=== PATIENT | male | born 1980 | race Caucasian/White ===

== ENCOUNTER 2022-07-17 13:26 | Inpatient (IN) | payer OTHER ==
[~2022-07-17] VITALS: Ht 182.9 cm; Wt 70.3 kg
[2022-07-17 14:19] LABS: BASOPHILS ABSOLUTE AUTO 0.06 K/mm3 (0.00-0.23); BASOPHILS PERCENT AUTO 0 % (0-2); EOSINOPHILS ABSOLUTE AUTO 0.12 K/mm3 (0.00-0.68); EOSINOPHILS PERCENT AUTO 1 % (0-6); Hematocrit 45.8 % (37.0-53.0); Hemoglobin 15.8 g/dL (13.5-17.5); IMMATURE GRAN ABSOLUTE AUTO 0.04 K/mm3 (0.00-0.10); IMMATURE GRAN PERCENT AUTO 0 % (0-1); LYMPHOCYTES PERCENT AUTO 12 % (21-46); MONOCYTES ABSOLUTE AUTO 0.67 K/mm3 (0.16-1.47); MONOCYTES PERCENT AUTO 4 % (4-13); Mean Corpuscular HGB Conc 34.5 g/dL (31.5-36.5); Mean Corpuscular Volume 87 fL (80-100); Mean Platelet Volume 8.9 fL (9.1-12.4); NEUTROPHILS ABSOLUTE AUTO 15.37 K/mm3 (1.96-9.15); NEUTROPHILS PERCENT AUTO 83 % (41-73); Platelet Count 409 K/mm3 (150-400); RDW Coefficient Variation 13.5 % (11.7-14.2); RDW Standard Deviation 42.8 fL (35.1-46.3); Red Blood Cell Count 5.26 M/mm3 (4.30-5.90); White Blood Cell Count 18.46 K/mm3 (4.00-11.30)
[2022-07-17 15:09] LABS: Albumin, Blood 3.7 g/dL (3.4-5.0); Albumin/Globulin Ratio 1.1 (0.8-1.8); Bilirubin, Total 0.4 mg/dL (0.1-1.0); Bun/Creatinine Ratio 18.2 (12.0-20.0); Calcium, Blood 9.2 mg/dL (8.5-10.1); Creatinine, Blood 0.66 mg/dL (0.60-1.20); Globulin, Blood 3.4 g/dL (2.2-4.0); Potassium, Blood 3.8 mmol/L (3.5-5.5); Total Protein, Blood 7.1 g/dL (6.4-8.2)
[2022-07-17 20:53] LABS: Source, Urine Clean Catch
[2022-07-17 21:09] LABS: Appearance, Urine Clear (Clear); Bilirubin, Urine Neg (Neg); Blood, Urine 1+ (Neg); Color, Urine Yellow (P-Yellow); Glucose Qualitative, Urine Neg (Neg); Ketones, Urine Neg (Neg); Leukocyte Esterase, Urine Neg (Neg); Nitrite, Urine Neg (Neg); Protein, Urine 1+ (Neg); Specific Gravity, Urine 1.015 (1.003-1.022); Urobilinogen, Urine NORM (Normal)
[2022-07-17 21:15] LABS: Hyaline Casts 0-2 /lpf (0-2)
[2022-07-17 21:16] LABS: Bacteria Few /hpf; Mucus Light (0-Heavy); Red Blood Cells, Urine 0-2 /hpf (0-2); Squamous Epithelial Cells Not Seen /hpf (Few); White Blood Cells, Urine 0-2 /hpf (0-5)
--- NOTE | 2022-07-17 21:32 | NUR ---
PT NEW ADMIT TO THE FLOOR FROM THE ER. ARRIVED IN 02/19 PAIN. PT WAS ABLE TO SELF TRANSFER TO BED AND USE THE BATHROOM WITH ASSISTANCE FROM . VOIDED W/O DIFFICULTY. PT REPORTS INCREASE BELCHING WITH ANY PO INTAKE. REPORTS NO RELIEF WITH THIS. PLAN TO BE NPO AT 0000.
--- NOTE | 2022-07-18 04:02 | NUR ---
VSS, BRADYCARDIA @56 NOTED. PT REMAINS ASYPTOMATIC. PT SLEPT ON AND OFF T/O THE NIGHT. VOIDED W/O DIFFICULTY, DARK YELLOW URINE. NO PASSING OF FLATTUS OR STOOL. NOTED THAT PT HAS HAD INCREASED BELCHING. HAS BEEN NPO SINCE 0000. SURGICAL [place]OWN COMPLETE. PAIN HAS BEEN DIFFICULT TO MANAGE T/O THE NIGHT, RECIEVED ORDER FOR Q4 NORCO INSTEAD OF Q6. PLAN FOR PT TO RECIEVE ABX THERAPY AND HAVE A SURGICAL CONSULT THIS AM. THE PATIENT IS CURRENTLY RESTING IN BED, IN NO DISTRESS, CALL LIGHT IN REACH.
[2022-07-18 06:22] LABS: BASOPHILS ABSOLUTE AUTO 0.05 K/mm3 (0.00-0.23); BASOPHILS PERCENT AUTO 0 % (0-2); EOSINOPHILS ABSOLUTE AUTO 0.14 K/mm3 (0.00-0.68); EOSINOPHILS PERCENT AUTO 1 % (0-6); Hematocrit 38.8 % (37.0-53.0); Hemoglobin 13.4 g/dL (13.5-17.5); IMMATURE GRAN ABSOLUTE AUTO 0.04 K/mm3 (0.00-0.10); IMMATURE GRAN PERCENT AUTO 0 % (0-1); LYMPHOCYTES ABSOLUTE AUTO 2.47 K/mm3 (0.84-5.20); LYMPHOCYTES PERCENT AUTO 17 % (21-46); MONOCYTES ABSOLUTE AUTO 1.16 K/mm3 (0.16-1.47); MONOCYTES PERCENT AUTO 8 % (4-13); Mean Corpuscular HGB 30.2 pg (26.0-34.0); Mean Corpuscular HGB Conc 34.5 g/dL (31.5-36.5); Mean Corpuscular Volume 88 fL (80-100); Mean Platelet Volume 9.8 fL (9.1-12.4); NEUTROPHILS PERCENT AUTO 73 % (41-73); Platelet Count 360 K/mm3 (150-400); RDW Coefficient Variation 13.8 % (11.7-14.2); RDW Standard Deviation 44.4 fL (35.1-46.3); Red Blood Cell Count 4.43 M/mm3 (4.30-5.90); White Blood Cell Count 14.36 K/mm3 (4.00-11.30)
[2022-07-18 06:51] LABS: Bun/Creatinine Ratio 11.2 (12.0-20.0); Calcium, Blood 8.7 mg/dL (8.5-10.1); Creatinine, Blood 0.8 mg/dL (0.60-1.20); Potassium, Blood 3.6 mmol/L (3.5-5.5)
--- NOTE | 2022-07-18 18:33 | NUR ---
SHIFT SUMMARY PATIENT ALERT AND ORIENTED THROUGHOUT SHIFT. ANXIOUS WITH MOOD SWINGS. AGREED TO TRYING AN ATIVAN DURING AFTERNOON AND THAT HELPED HIS MOOD. ADVANCED TO CLEAR LIQUIDS TODAY BY DR BIGGS. ABD PAIN MANAGED BY PO PAIN MEDS. TOLERATING CLEAR LIQUIDS. REPORTS PASSING GAS. BT HYPERACTIVE. SPOUSE PRESENT IN ROOM DURING AM AND AFTERNOON. AMBULATES INDEPENDENTLY IN ROOM AND HALLS. ROUTINE IV FLUIDS AND ABX.
--- NOTE | 2022-07-19 08:24 | NUR ---
SUMMARY PT WAS ANXIOUS AT BEGINNING OF SHIFT RELATED TO DESIRE TO GO OUTSIDE DURING SHIFT CHANGE. AT BEDSIDE SUPPORTIVE OF BOTH PT AND STAFF. WALKED WITH PT OUTSIDE AND PT CALMED AFTER RETURN TO ROOM.SLEPT MOST OF NIGHT.CONTINUES TO REPORT ABDOMEN FEELING BETTER THIS AM.
--- NOTE | 2022-07-19 09:55 | NUR ---
PT IS ANXIOUS AND ANGRY THIS AM, WANTS TO GO HOME, REFUSED THE REST OF ASSESSMENT, WALKED OUT OF THE ROOM.
[2022-07-19] MEDS ORDERED: LEVFLO500 PO (11:57)
[2022-07-19] MEDS ORDERED: METR500 PO (11:58)
--- NOTE | 2022-07-19 12:14 | NUR ---
PT DC'D HOME, DC INSTRUCTIONS GIVEN, VERBALIZED UNDERSTANDING.
== END 2022-07-19 12:13 | disposition home or self-care (01) | DRG 392 ==
LOC: ER 13:26 → SURS 18:08
PROVIDERS: Physician Assistant; ADMIT Surgery
DX: K57.20 Diverticulitis of large intestine with perforation and abscess without bleeding (principal); K40.90 Unilateral inguinal hernia, without obstruction or gangrene, not specified as recurrent; F41.9 Anxiety disorder, unspecified; F17.290 Nicotine dependence, other tobacco product, uncomplicated; F12.90 Cannabis use, unspecified, uncomplicated; Z98.890 Other specified postprocedural states; Z79.899 Other long term (current) drug therapy
CPT/HCPCS: 36415; 51798; 74177; 80048; 80053; 81001; 83690; 85025; 96365-59; 96367; 96375; 99285-25; A9270; J1170; J1956; J2405; J3010; J7030; J7120; Q9967

== ENCOUNTER 2022-08-28 22:14 | Emergency (ER) | payer OTHER ==
[~2022-08-28] VITALS: Ht 182.9 cm; Wt 67.6 kg
[~2022-08-28 22:14] MED LIST: LEVFLO500 PO; METR500 PO
[2022-08-28 22:43] LABS: BASOPHILS PERCENT AUTO 1 % (0-2); EOSINOPHILS ABSOLUTE AUTO 0.23 K/mm3 (0.00-0.68); EOSINOPHILS PERCENT AUTO 2 % (0-6); Hematocrit 46.1 % (37.0-53.0); Hemoglobin 16.1 g/dL (13.5-17.5); IMMATURE GRAN ABSOLUTE AUTO 0.08 K/mm3 (0.00-0.10); IMMATURE GRAN PERCENT AUTO 1 % (0-1); LYMPHOCYTES PERCENT AUTO 36 % (21-46); MONOCYTES ABSOLUTE AUTO 1.21 K/mm3 (0.16-1.47); MONOCYTES PERCENT AUTO 9 % (4-13); Mean Corpuscular HGB 30.1 pg (26.0-34.0); Mean Corpuscular HGB Conc 34.9 g/dL (31.5-36.5); Mean Corpuscular Volume 86 fL (80-100); Mean Platelet Volume 9.2 fL (9.1-12.4); NEUTROPHILS ABSOLUTE AUTO 7.53 K/mm3 (1.96-9.15); NEUTROPHILS PERCENT AUTO 53 % (41-73); Platelet Count 418 K/mm3 (150-400); RDW Coefficient Variation 13.4 % (11.7-14.2); RDW Standard Deviation 42.2 fL (35.1-46.3); Red Blood Cell Count 5.34 M/mm3 (4.30-5.90); White Blood Cell Count 14.25 K/mm3 (4.00-11.30)
[2022-08-28 23:03] LABS: Albumin, Blood 4.1 g/dL (3.4-5.0); Bilirubin, Total 0.2 mg/dL (0.1-1.0); Bun/Creatinine Ratio 14.6 (12.0-20.0); Creatinine, Blood 0.75 mg/dL (0.60-1.20); Potassium, Blood 3.5 mmol/L (3.5-5.5); Total Protein, Blood 8.1 g/dL (6.4-8.2)
[2022-08-29 00:50] LABS: Source, Urine Clean Catch
[2022-08-29 00:59] LABS: Bilirubin, Urine Neg (Neg); Blood, Urine Neg (Neg); Glucose Qualitative, Urine Neg (Neg); Ketones, Urine Neg (Neg); Leukocyte Esterase, Urine Neg (Neg); Nitrite, Urine Neg (Neg); Protein, Urine Neg (Neg); Urobilinogen, Urine NORM (Normal)
[2022-08-29 01:05] LABS: Appearance, Urine Clear (Clear); Color, Urine Yellow (P-Yellow)
== END 2022-08-29 03:17 | disposition home or self-care (01) ==
LOC: ER 22:14
PROVIDERS: Emergency Medicine; Student in an Organized Health Care Education/Training Program
DX: K62.5 Hemorrhage of anus and rectum (principal); K40.90 Unilateral inguinal hernia, without obstruction or gangrene, not specified as recurrent; D72.829 Elevated white blood cell count, unspecified; F17.200 Nicotine dependence, unspecified, uncomplicated
CPT/HCPCS: 36415; 74177; 80053; 81003; 85025; 93005; 93010; 96374-59; 99284-25; J3010; Q9967

== ENCOUNTER 2022-09-14 17:19 | Emergency (ER) | payer OTHER ==
[~2022-09-14] VITALS: Ht 182.9 cm; Wt 68.0 kg
[2022-09-14 18:11] LABS: BASOPHILS ABSOLUTE AUTO 0.08 K/mm3 (0.00-0.23); BASOPHILS PERCENT AUTO 1 % (0-2); EOSINOPHILS ABSOLUTE AUTO 0.09 K/mm3 (0.00-0.68); EOSINOPHILS PERCENT AUTO 1 % (0-6); Hematocrit 44.8 % (37.0-53.0); Hemoglobin 15.6 g/dL (13.5-17.5); IMMATURE GRAN ABSOLUTE AUTO 0.03 K/mm3 (0.00-0.10); IMMATURE GRAN PERCENT AUTO 0 % (0-1); LYMPHOCYTES ABSOLUTE AUTO 2.82 K/mm3 (0.84-5.20); LYMPHOCYTES PERCENT AUTO 34 % (21-46); MONOCYTES ABSOLUTE AUTO 0.58 K/mm3 (0.16-1.47); MONOCYTES PERCENT AUTO 7 % (4-13); Mean Corpuscular HGB 29.9 pg (26.0-34.0); Mean Corpuscular HGB Conc 34.8 g/dL (31.5-36.5); Mean Corpuscular Volume 86 fL (80-100); Mean Platelet Volume 8.9 fL (9.1-12.4); NEUTROPHILS ABSOLUTE AUTO 4.67 K/mm3 (1.96-9.15); NEUTROPHILS PERCENT AUTO 56 % (41-73); Platelet Count 435 K/mm3 (150-400); RDW Coefficient Variation 13.1 % (11.7-14.2); RDW Standard Deviation 40.7 fL (35.1-46.3); Red Blood Cell Count 5.21 M/mm3 (4.30-5.90); White Blood Cell Count 8.27 K/mm3 (4.00-11.30)
[2022-09-14 18:26] LABS: Albumin, Blood 4.2 g/dL (3.4-5.0); Albumin/Globulin Ratio 1.2 (0.8-1.8); Bilirubin, Total 0.3 mg/dL (0.1-1.0); Bun/Creatinine Ratio 11.8 (12.0-20.0); Calcium, Blood 9.4 mg/dL (8.5-10.1); Creatinine, Blood 0.59 mg/dL (0.60-1.20); Globulin, Blood 3.6 g/dL (2.2-4.0); Potassium, Blood 3.6 mmol/L (3.5-5.5); Total Protein, Blood 7.8 g/dL (6.4-8.2)
[2022-09-14 19:50] LABS: Source, Urine Clean Catch
[2022-09-14 20:00] LABS: Appearance, Urine Clear (Clear); Bilirubin, Urine Neg (Neg); Blood, Urine 1+ (Neg); Color, Urine Yellow (P-Yellow); Glucose Qualitative, Urine Neg (Neg); Ketones, Urine Neg (Neg); Leukocyte Esterase, Urine Neg (Neg); Nitrite, Urine Neg (Neg); Protein, Urine 1+ (Neg); Urobilinogen, Urine NORM (Normal); pH, Urine 6.5 (5.0-8.0)
[2022-09-14 20:12] LABS: Bacteria Few /hpf; Red Blood Cells, Urine 0-2 /hpf (0-2); Squamous Epithelial Cells Rare /hpf (Few); White Blood Cells, Urine 0-2 /hpf (0-5)
[2022-09-14] MEDS ORDERED: ONDA4 PO (20:31)
== END 2022-09-14 20:42 | disposition home or self-care (01) ==
LOC: ER 17:19
PROVIDERS: Physician Assistant
DX: R10.9 Unspecified abdominal pain (principal); F17.200 Nicotine dependence, unspecified, uncomplicated
CPT/HCPCS: 36415; 74177; 80053; 81001; 85025; 96374-59; 96375; 99284-25; J2405; J3010; Q9967

== ENCOUNTER 2024-04-11 14:03 | Emergency (ER) | payer OTHER ==
[~2024-04-11] VITALS: Ht 182.9 cm; Wt 68.0 kg
[~2024-04-11 14:03] MED LIST changes: +AMOCLA875 PO; +Norco 5-325 Ta1 EACH PO; +ONDA4 PO
[2024-04-11] MEDS ORDERED: OLANZapine ODT 5 MG Tab PO ONE (14:20)
[2024-04-11 14:44] LABS: BASOPHILS ABSOLUTE AUTO 0.08 K/mm3 (0.00-0.23); BASOPHILS PERCENT AUTO 1 % (0-2); EOSINOPHILS ABSOLUTE AUTO 0.16 K/mm3 (0.00-0.68); EOSINOPHILS PERCENT AUTO 2 % (0-6); Hematocrit 41.3 % (37.0-53.0); Hemoglobin 14.1 g/dL (13.5-17.5); IMMATURE GRAN ABSOLUTE AUTO 0.02 K/mm3 (0.00-0.10); IMMATURE GRAN PERCENT AUTO 0 % (0-1); LYMPHOCYTES ABSOLUTE AUTO 2.52 K/mm3 (0.84-5.20); LYMPHOCYTES PERCENT AUTO 32 % (21-46); MONOCYTES ABSOLUTE AUTO 0.55 K/mm3 (0.16-1.47); MONOCYTES PERCENT AUTO 7 % (4-13); Mean Corpuscular HGB 29.5 pg (26.0-34.0); Mean Corpuscular HGB Conc 34.1 g/dL (31.5-36.5); Mean Corpuscular Volume 86 fL (80-100); NEUTROPHILS PERCENT AUTO 58 % (41-73); Platelet Count 408 K/mm3 (150-400); RDW Coefficient Variation 13.9 % (11.7-14.2); RDW Standard Deviation 43.5 fL (35.1-46.3); Red Blood Cell Count 4.78 M/mm3 (4.30-5.90); White Blood Cell Count 7.93 K/mm3 (4.00-11.30)
[2024-04-11] MEDS ORDERED: TIZANIDINE HCL213 PO (14:47)
[2024-04-11] MEDS ORDERED: BUSPIRONE HCL10 M6 PO (14:47)
[2024-04-11] MEDS ORDERED: FLUOXETINE HCL60 MG PO (14:47)
[2024-04-11] MEDS ORDERED: VRAYLAR3 MG PO (14:47)
[2024-04-11] MEDS ORDERED: Nicotine 21 MG PATCH TOP ONE (15:05)
[2024-04-11 15:11] LABS: Ethanol (Alcohol), Blood, Med 203 mg/dL; Salicylate <1.7 mg/dL (2.8-20.0)
[2024-04-11 15:14] LABS: Alanine Aminotransfer (ALT/SGP 30 U/L (12-78); Albumin, Blood 3.8 g/dL (3.4-5.0); Albumin/Globulin Ratio 1.1 (0.8-1.8); Alk Phos 62 U/L (50-136); Anion Gap 14 mmol/L (3-11); Aspartate Aminotrans (AST/SGOT 24 U/L (12-37); Bilirubin, Total 0.3 mg/dL (0.1-1.0); Blood Urea Nitrogen 7 mg/dL (8-24); CO2, Blood 22 mmol/L (21-32); Chloride, Blood 110 mmol/L (98-108); Globulin, Blood 3.5 g/dL (2.2-4.0); Glomerular Filtration Rate 117 (60-); Glucose, Blood 129 mg/dL (70-99); Potassium, Blood 4.1 mmol/L (3.5-5.5); Sodium, Blood 142 mmol/L (136-145); Total Protein, Blood 7.3 g/dL (6.4-8.2)
[2024-04-11 15:15] LABS: Acetaminophen, Random <2.0 ug/mL (10.0-30.0)
[2024-04-11 15:21] LABS: Source, Urine Clean Catch
[2024-04-11 15:24] LABS: Appearance, Urine Clear (Clear); Bilirubin, Urine Neg (Neg); Blood, Urine Neg (Neg); Glucose Qualitative, Urine Neg (Neg); Ketones, Urine Neg (Neg); Leukocyte Esterase, Urine Neg (Neg); Nitrite, Urine Neg (Neg); Protein, Urine Neg (Neg); Specific Gravity, Urine 1.005 (1.003-1.022); Urobilinogen, Urine NORM (Normal)
[2024-04-11 16:04] LABS: U Amphetamine Screen Not Detected; U Barbituate Screen Not Detected; U Benzodiazapine Screen Not Detected; U Buprenorphine Screen Not Detected; U Cannabinoids Screen DETECTED; U Cocaine Screen Not Detected; U Methadone Screen Not Detected; U Methamphetamine Screen Not Detected; U Opiates Screen Not Detected; U Oxycodone Screen Not Detected; U Phencyclidine Screen Not Detected
[2024-04-11 16:19] LABS: Color, Urine Pale Yellow (P-Yellow)
[2024-04-11 20:32] VITALS: BP 111/76
== END 2024-04-11 20:32 | disposition home or self-care (01) ==
LOC: ER 14:03
PROVIDERS: Emergency Medicine
DX: R45.851 Suicidal ideations (principal); R44.0 Auditory hallucinations; F10.929 Alcohol use, unspecified with intoxication, unspecified; Y90.7 Blood alcohol level of 200-239 mg/100 ml; F17.290 Nicotine dependence, other tobacco product, uncomplicated
CPT/HCPCS: 80053; 80320; 81003; 85025; 93005; 93010; 99285-25; A9270; G0480

== ENCOUNTER → 2024-06-25 | Outpatient (CLI) | payer OTHER ==
[~2024-06-25] MED LIST changes: +BUSPIRONE HCL10 M6 PO; +FLUOXETINE HCL60 MG PO; +TIZANIDINE HCL213 PO; +VRAYLAR3 MG PO
[2024-06-25 19:24] LABS: Chlamydia Trachomatis Urine NOT DETECTED (NOT DETECT); Neisseria Gonorrhoea Urine NOT DETECTED (NOT DETECT)
== END ==
LOC: LAB 16:15 → LAB SHORT 16:15
PROVIDERS: Physician Assistant Surgical
DX: R30.0 Dysuria (principal)
CPT/HCPCS: 87086; 87491; 87591

== ENCOUNTER 2025-04-26 19:20 | Emergency (ER) | payer OTHER ==
[~2025-04-26] VITALS: Ht 182.9 cm; Wt 78.9 kg
[2025-04-26 20:29] LABS: BASOPHILS ABSOLUTE AUTO 0.06 K/mm3 (0.00-0.23); BASOPHILS PERCENT AUTO 1 % (0-2); EOSINOPHILS ABSOLUTE AUTO 0.19 K/mm3 (0.00-0.68); EOSINOPHILS PERCENT AUTO 3 % (0-6); Hematocrit 41.9 % (37.0-53.0); Hemoglobin 14.2 g/dL (13.5-17.5); IMMATURE GRAN ABSOLUTE AUTO 0.04 K/mm3 (0.00-0.10); IMMATURE GRAN PERCENT AUTO 1 % (0-1); LYMPHOCYTES ABSOLUTE AUTO 2.96 K/mm3 (0.84-5.20); LYMPHOCYTES PERCENT AUTO 40 % (21-46); MONOCYTES ABSOLUTE AUTO 0.55 K/mm3 (0.16-1.47); MONOCYTES PERCENT AUTO 7 % (4-13); Mean Corpuscular HGB Conc 33.9 g/dL (31.5-36.5); Mean Corpuscular Volume 88 fL (80-100); NEUTROPHILS ABSOLUTE AUTO 3.68 K/mm3 (1.96-9.15); NEUTROPHILS PERCENT AUTO 49 % (41-73); NRBC ABSOLUTE 0.00 K/mm3 (0.00-0.02); NRBC Auto 0.0 /100 WBC (0.0-0.2); Platelet Count 339 K/mm3 (150-400); RDW Coefficient Variation 13.7 % (11.7-14.2); RDW Standard Deviation 44.0 fL (35.1-46.3)
[2025-04-26 21:07] LABS: Alanine Aminotransfer (ALT/SGP 26.0 U/L (12-78); Albumin, Blood 3.6 g/dL (3.4-5.0); Albumin/Globulin Ratio 1.0 (0.8-1.8); Anion Gap 12.0 mmol/L (3-11); Aspartate Aminotrans (AST/SGOT 15.0 U/L (12-37); Bilirubin, Total 0.2 mg/dL (0.1-1.0); Blood Urea Nitrogen 10.0 mg/dL (8-24); CO2, Blood 25.0 mmol/L (21-32); Calcium, Blood 9.6 mg/dL (8.5-10.1); Chloride, Blood 104.0 mmol/L (98-108); Creatinine, Blood 0.82 mg/dL (0.60-1.20); Globulin, Blood 3.7 g/dL (2.2-4.0); Glucose, Blood 147.0 mg/dL (70-99); Potassium, Blood 3.0 mmol/L (3.5-5.5); Sodium, Blood 138.0 mmol/L (136-145); Total Protein, Blood 7.3 g/dL (6.4-8.2)
[2025-04-26 21:27] LABS: Source, Urine Clean Catch
[2025-04-26 21:31] LABS: Bilirubin, Urine Neg (Neg); Color, Urine Yellow (P-Yellow); Glucose Qualitative, Urine Neg (Neg); Ketones, Urine 1+ (Neg); Leukocyte Esterase, Urine Neg (Neg); Protein, Urine Neg (Neg); Specific Gravity, Urine 1.020 (1.003-1.022); Urobilinogen, Urine NORM (Normal)
[2025-04-26 22:30] VITALS: BP 126/95
[2025-04-26] MEDS ORDERED: GABA100 PO (23:26)
== END 2025-04-26 23:51 | disposition home or self-care (01) ==
LOC: ER 19:20
PROVIDERS: Student in an Organized Health Care Education/Training Program
DX: M51.372 Other intervertebral disc degeneration, lumbosacral region with discogenic back pain and lower extremity pain (principal); E87.6 Hypokalemia; F17.290 Nicotine dependence, other tobacco product, uncomplicated; Z79.899 Other long term (current) drug therapy
CPT/HCPCS: 80053; 81003; 85025; 99283; A9270

== ENCOUNTER → 2025-07-12 | Outpatient (CLI) | payer OTHER ==
[~2025-07-12] MED LIST changes: +GABA100 PO
[2025-07-12 17:45] LABS: BASOPHILS ABSOLUTE AUTO 0.06 K/mm3 (0.00-0.23); BASOPHILS PERCENT AUTO 1 % (0-2); EOSINOPHILS ABSOLUTE AUTO 0.14 K/mm3 (0.00-0.68); EOSINOPHILS PERCENT AUTO 2 % (0-6); Hematocrit 43.6 % (37.0-53.0); Hemoglobin 14.5 g/dL (13.5-17.5); IMMATURE GRAN ABSOLUTE AUTO 0.04 K/mm3 (0.00-0.10); IMMATURE GRAN PERCENT AUTO 1 % (0-1); LYMPHOCYTES ABSOLUTE AUTO 2.08 K/mm3 (0.84-5.20); LYMPHOCYTES PERCENT AUTO 25 % (21-46); MONOCYTES ABSOLUTE AUTO 0.54 K/mm3 (0.16-1.47); MONOCYTES PERCENT AUTO 7 % (4-13); Mean Corpuscular HGB Conc 33.3 g/dL (31.5-36.5); Mean Corpuscular Volume 90 fL (80-100); NEUTROPHILS ABSOLUTE AUTO 5.41 K/mm3 (1.96-9.15); NEUTROPHILS PERCENT AUTO 65 % (41-73); NRBC ABSOLUTE 0.00 K/mm3 (0.00-0.02); NRBC Auto 0.0 /100 WBC (0.0-0.2); Platelet Count 381 K/mm3 (150-400); RDW Coefficient Variation 14.1 % (11.7-14.2); RDW Standard Deviation 46.3 fL (35.1-46.3)
[2025-07-12 20:26] LABS: Alanine Aminotransfer (ALT/SGP 39.0 U/L (12-78); Albumin, Blood 3.9 g/dL (3.4-5.0); Albumin/Globulin Ratio 1.1 (0.8-1.8); Anion Gap 12.0 mmol/L (3-11); Aspartate Aminotrans (AST/SGOT 24.0 U/L (12-37); Bilirubin, Total 0.6 mg/dL (0.1-1.0); Blood Urea Nitrogen 7.0 mg/dL (8-24); CO2, Blood 24.0 mmol/L (21-32); Calcium, Blood 9.0 mg/dL (8.5-10.1); Chloride, Blood 103.0 mmol/L (98-108); Creatinine, Blood 0.72 mg/dL (0.60-1.20); Globulin, Blood 3.7 g/dL (2.2-4.0); Glucose, Blood 103.0 mg/dL (70-99); Potassium, Blood 3.8 mmol/L (3.5-5.5); Sodium, Blood 135.0 mmol/L (136-145); Thyroid Stimulating Hormone 0.731 uIU/mL (0.360-4.800); Total Protein, Blood 7.6 g/dL (6.4-8.2)
== END | disposition home or self-care (01) ==
LOC: LAB 10:40 → LAB SHORT 10:40
PROVIDERS: Nurse Practitioner Psychiatric/Mental Health
DX: R44.3 Hallucinations, unspecified (principal); F10.10 Alcohol abuse, uncomplicated
CPT/HCPCS: 80053; 84443; 85025